=== PATIENT | female | born 1940 | race Caucasian/White ===

== ENCOUNTER 2023-10-21 12:08 | Emergency (ER) | payer MEDICARE, MEDICAID, SELFPAY ==
[2023-10-21 12:16] VITALS: BP 128/62
[2023-10-21 13:41] LABS: Urine Albumin 2+ (Neg - Trace); Urine Bilirubin Negative (Negative); Urine Character Very Cloudy (Clear); Urine Color Yellow; Urine Glucose Negative (Negative); Urine Ketone Negative (Negative); Urine Leukocyte 2+ (Negative); Urine Nitrite Negative (Negative); Urine Occult Blood 4+ (Negative); Urine Urobilinogen Negative (Neg - 1+)
[2023-10-21 14:00] VITALS: BP 128/74
--- NOTE | 2023-10-21 14:08 | ED.GENMED ---
Addendum entered and electronically signed by Cristian Connors PA-C 10/23/23 07:07:
Urine culture shows greater than 100,000 colony-forming units of E. coli. Sensitivities pending. Given fosfomycin
Original Note:
History of Present Illness
General
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
Time Seen by Provider: 10/21/23 13:54
Travel History
Have you had any contact with someone who has COVID-19?: No
Do you have any symptoms of coronavirus? Fever > 100 degrees, chills, cough, shortness of breath, sore throat, loss of taste or smell, muscle aches, or headache?: No
History of Present Illness
History of Present Illness:
HPI: The patient presents with pain near the suprapubic catheter site. She has had a suprapubic catheter for years and had the suprapubic catheter tube changed 2 weeks ago. She is somewhat of a limited historian has history of some cognitive
impairment and lives in a alf.
EXAM:
GENERAL: Well appearing in no distress
HEENT: Moist oral mucosa
CARDIOVASCULAR: No murmurs, normal heart rate, regular rhythm, No chest wall tenderness
PULMONARY: No respiratory distress, breath sounds are clear and equal
ABDOMEN: Soft with no peritoneal signs, minimal tenderness at the SP tube site, the tube is draining urine freely
NEUROLOGIC: Excellent strength all extremities, no coordination deficits, mild cognitive impairment
PSYCHIATRIC: Appropriate mental status, reasonable insight and judgement
EXTREMITIES: Nontender, no edema, moves all extremities equally
SKIN: No rash, no lesions
TIME OF INITIAL ENCOUNTER: 2 PM
NUMBER AND COMPLEXITY OF PROBLEMS ADDRESSED AT THE ENCOUNTER
� Chronic conditions affecting care: Developmental delay, high blood pressure, frequent UTI
� Acute Exacerbation and/or Progression of Chronic Illness: This is an acute on chronic problem
� Differential Diagnosis includes: UTI, kidney stone, pyelonephritis
AMOUNT AND/OR COMPLEXITY OF DATA TO BE REVIEWED AND ANALYZED
� I performed an independent evaluation of and my interpretation is:
EKG:
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
X-rays:
Laboratory Studies: Urinalysis obtained from the tube not from the bag shows very cloudy yellow urine with 4+ blood and 2+ leukocyte esterase
Other:
� Review of other/old records: I reviewed records, she has had Proteus and E. coli infections in the past
� Clinical information was obtained by an independent historian: I spoke to the staff from her alf at bedside
� Prescriptions/Medications Considered but not given:
� Further testing considered but not performed:
RISK OF COMPLICATIONS AND/OR MORBIDITY OR MORTALITY OF PATIENT MANAGEMENT
� Social determinants of health affecting care: Lives at a alf
� Discussion with other providers: Discussed with pharmacist as I had originally ordered Bactrim. However the patient is on an ARB and it is recommended to not use Bactrim on ARB. Bactrim was initially chosen based on prior
sensitivities when she grew E. coli and Proteus. Giving dose of fosfomycin.
� Escalation of care including admission/observation vs risk of discharge considered: As she does have associated pain, CT imaging obtained. Dr. Bowser also recommends an IV dose of antibiotic as well. Based on prior studies,
will give a dose of meropenem. I also sent a for 1 additional dose of fosfomycin to be given at her facility. The patient's vital signs are not consistent with sepsis. She is very comfortable in appearance.
Past History
Past History
ED Past Medical History: HTN, Hypercholesterolemia and Other (Special needs patient)
ED Past Surgical History: Gynecological (Total Hysterectomy) and Orthopedic (Bilateral knee replacements)
Social History
Tobacco: Non-smoker
Alcohol: None
Drug: None
Personal: Single
Living: with family
Phy Exam
Physical Exam
Physical Exam:
See HPI
Course
Orders/Labs/Results
Orders:
Orders
10/21/23 13:23
Urinalysis Reflex To Culture Urgent
Date Specimen was Collected: 10/21/23
Time Specimen was Collected: 13:21
Urine Microscopic Reflex Cult Urgent
Urine Culture Urgent
MARCY Source: U
Specimen Description:
Date Specimen was Collected: 10/21/23
Time Specimen was Collected: 13:21
10/21/23 14:08
CT Abd/pel Without Iv Or Oral Urgent
Comment:
Reason For Exam: abd pain, ?back pain, hematuria, chronic SP tube
10/21/23 14:11
Sulfamethox./Trimethoprim Ds [Bactrim Ds 800 mg/160 mg] 1 tablet PO NOW STA
10/21/23 14:31
Fosfomycin [Monurol] 3 gm PO ONCE ONE
10/21/23 16:03
Meropenem [Merrem] 1,000 mg IV NOW STA
10/21/23 16:36
Basic Metabolic Panel Urgent
Complete Blood Count/With Diff Urgent
10/21/23 18:16
Potassium Chloride 10% Elixir [KCl Elixir] 40 meq PO NOW STA
Abnormal Lab Results
10/21/23 10/21/23
13:23 16:36
RBC 3.95 L 10^6/uL
(4.20-5.40)
Hgb 11.6 L g/dL
(12.0-16.0)
Hct 33.5 L %
(37.0-47.0)
Abs Immat Gran (auto) 0.1 H 10^3/uL
(0-0.05)
Absolute Neuts (auto) 6.6 H 10^3/uL
(1.4-6.5)
Absolute Monos (auto) 0.7 H 10^3/uL
(0.1-0.6)
Immature Gran % 0.7 H %
(0-0.5)
Lymphocytes % 15.2 L %
(20.5-51.1)
Potassium 3.4 L mmol/L
(3.5-5.1)
BUN 32 H mg/dl
(7-17)
Ur Occult Blood Reflex 4+ A
(Negative)
Leukocyte Esterase Rfl 2+ A
(Negative)
Urine RBC 26-30 A /HPF
(0-2)
Urine WBC (Reflex) >100 A /HPF
(0-5)
Urine Bacteria (Reflex) Few A
(Negative)
Urine Albumin (Reflex) 2+ A
(Neg - Trace)
10/21/23 16:36
10/21/23 16:36
Vital Signs
Initial and Last Documented VS:
Initial Vital Signs
Temp Pulse Resp BP Pulse Ox
98.4 F 72 18 128/62 97
10/21/23 12:16 10/21/23 12:16 10/21/23 12:16 10/21/23 12:16 10/21/23 12:16
Last Documented Vital Signs
Temp Pulse Resp BP Pulse Ox
98.4 F 67 15 126/84 96
10/21/23 12:16 10/21/23 14:00 10/21/23 14:00 10/21/23 18:00 10/21/23 18:15
*Critical Care Note
Total Time (30-74mins, 75-104mins- exclusive of procedures): Not Applicable
ED Attending Note
-
Portions of this chart may have been created with voice recognition software.� Occasional wrong word or��sound alike� substitutions may have occurred due to the inherent limitations of voice recognition software.
Discharge Plan
Departure
Patient Disposition: Home (Routine Discharge)
Date of Disposition: 10/21/23
Time of Disposition: 16:07
Patient with high blood pressure during this ER visit?: Yes
Discharge Problem:
UTI (urinary tract infection)
Instructions: Urinary Tract Infection, Adult (DC)
Prescriptions:
New
fosfomycin tromethamine 3 gram packet
3 g PO ONCE Qty: 1 0RF
No Action
sertraline 100 MG tablet
200 mg PO HS
simvastatin 40 MG tablet
40 mg PO QPM
amlodipine 10 MG tablet
10 mg PO DAILY
potassium chloride 10 MEQ tablet,ER particles/crystals
10 meq PO BID
ibandronate [Boniva] 150 MG tablet
150 mg PO MONTHLY
Rx Instructions:
18 of the
omeprazole 40 MG capsule,delayed release(DR/EC)
40 mg PO DAILY
calcium carbonate [Oyster Shell Calcium 500] 500 MG tablet
500 mg PO DAILY
ferrous sulfate 325 mg (65 mg iron) Tablet
325 mg PO DAILY
losartan 25 mg Tablet
25 mg PO DAILY
triamterene-hydrochlorothiazid 75-50 mg Tablet
1 tab PO DAILY
Myrbetriq 50 mg Tablet Extended Release 24 Hr
50 mg PO DAILY
cranberry 200 MG
200 mg PO DAILY
cefdinir 300 mg capsule
300 mg PO BID 5 Days Qty: 10 0RF
Referrals:
Connie Thurston DO [Family Provider] -
Activity Restrictions/Additional Instructions:
We gave a dose of fosfomycin which is a pill. I spoke to the pharmacy here who recommends an additional dose of fosfomycin to be given in 2 to 3 days. I have sent a prescription for 1 additional dose of fosfomycin to be given this Wednesday. I sent
the prescription to [facility] pharmacy
Interventions
Interventions:
*Risk Screen - Suicide Last Done: 10/21/23 12:16
*General Assessment Last Done: 10/21/23 12:16
*Neglect/Abuse Screening Last Done: 10/21/23 12:16
ED- Fall Risk Assessment Last Done: 10/21/23 13:19
*ED COVID-19 Vaccine History Last Done: 10/21/23 18:50
*Nursing Disposition Last Done: 10/21/23 18:50
ED-Female Genitourinary Assessment Last Done: 10/21/23 13:18
Discharge Date and Time
Discharge Date/Time: 10/21/23 18:52
Print Language: THAI
[2023-10-21] MEDS: BACTRIM DS 800 MG/160 MG 1 TABLET PO (14:16)
[2023-10-21 14:19] VITALS: BP 128/58
[2023-10-21 14:41] LABS: Urine Squamous Cell 0-2 /LPF (Few)
[2023-10-21 14:42] LABS: Urine Red Blood Cell 26-30 /HPF (0-2); Urine White Cell >100 /HPF (0-5)
[2023-10-21 14:43] LABS: Urine Amorphous Seen; Urine Bacteria Few (Negative)
[2023-10-21] MEDS: MONUROL 3 GM PO (14:46)
[2023-10-21 16:32] VITALS: BP 114/63
[2023-10-21 16:43] LABS: % Basophils 0.1 % (0-2); % Eosinophils 1.2 % (0-6); % Immature Granulocytes 0.7 % (0-0.5); % Lymphocytes 15.2 % (20.5-51.1); % Monocytes 7.9 % (1.7-9.3); % Neutrophils 74.9 % (42.2-75.2); Absolute Eosinophils 0.1 10^3/uL (0-0.7); Absolute Immature Granulocytes 0.1 10^3/uL (0-0.05); Absolute Lymphocytes 1.3 10^3/uL (1.2-3.4); Absolute Monocytes 0.7 10^3/uL (0.1-0.6); Absolute Neutrophils 6.6 10^3/uL (1.4-6.5); Hematocrit 33.5 % (37.0-47.0); Hemoglobin 11.6 g/dL (12.0-16.0); Mean Corp Hgb Conc. 34.6 g/dL (33.0-37.0); Mean Corpuscular Hgb 29.4 pg (27.0-31.0); Mean Corpuscular Volume 84.8 fL (81.0-99.0); Mean Platelet Volume 8.9 fL (7.4-10.4); Nucleated Red Blood Cells % 0 %; Platelet Count 238 10^3/uL (130-400); Red Blood Cell Count 3.95 10^6/uL (4.20-5.40); Red Cell Dist. Width 13.2 % (11.5-14.5); White Blood Cell Count 8.8 10^3/uL (4.8-10.8)
[2023-10-21] MEDS: MERREM 1000 MG IV (16:58)
[2023-10-21 17:00] VITALS: BP 133/60
[2023-10-21 17:35] LABS: Blood Urea Nitrogen 32 mg/dl (7-17); Calcium 9.5 mg/dl (8.4-10.2); Carbon Dioxide 28 mmol/L (22-30); Chloride 101 mmol/L (98-107); Glucose 99 mg/dl (70-99); Potassium 3.4 mmol/L (3.5-5.1); Sodium 138 mmol/L (135-145); eGFR > 60.00
[2023-10-21 18:00] VITALS: BP 126/84
[2023-10-21] MEDS: KCL ELIXIR 40 MEQ PO (18:26)
== END 2023-10-21 18:52 | disposition home or self-care (01) ==
LOC: EMR 12:08
PROVIDERS: EMERGENCY PHYSICIAN Emergency Medicine; FAMILY PHYSICIAN Family Medicine
DX: N39.0 Urinary tract infection, site not specified (principal); R10.9 Unspecified abdominal pain; I10 Essential (primary) hypertension; E78.00 Pure hypercholesterolemia, unspecified; Z90.710 Acquired absence of both cervix and uterus; Z96.653 Presence of artificial knee joint, bilateral
CPT/HCPCS: 99284; 96374; 74176; 80048; 81003; 81015; 85025; 87086; 87088; 87186; J2185

== ENCOUNTER → 2023-11-30 11:12 | Outpatient (REF) | payer MEDICARE, MEDICAID, SELFPAY | LOC: RAD 11:12 | PROVIDERS: ATTENDING PHYSICIAN Urology; FAMILY PHYSICIAN Family Medicine | DX: N39.0 Urinary tract infection, site not specified (principal); N20.0 Calculus of kidney | CPT/HCPCS: 74176 ==

== ENCOUNTER 2024-01-07 12:04 | Inpatient (IN) | payer MEDICARE, MEDICAID, SELFPAY ==
[2024-01-05] VITALS (9 sets, daily range): BP systolic 60–153; BP diastolic 45–87; BMI 24.9
[2024-01-05 09:40] LABS: % Eosinophils 0.8 % (0-6); % Immature Granulocytes 0.3 % (0-0.5); % Lymphocytes 14.9 % (20.5-51.1); % Monocytes 8.4 % (1.7-9.3); % Neutrophils 75.6 % (42.2-75.2); Absolute Eosinophils 0.1 10^3/uL (0-0.7); Absolute Lymphocytes 1.1 10^3/uL (1.2-3.4); Absolute Monocytes 0.6 10^3/uL (0.1-0.6); Absolute Neutrophils 5.3 10^3/uL (1.4-6.5); Hematocrit 36.5 % (37.0-47.0); Hemoglobin 12.8 g/dL (12.0-16.0); Mean Corp Hgb Conc. 35.1 g/dL (33.0-37.0); Mean Corpuscular Hgb 29.4 pg (27.0-31.0); Mean Corpuscular Volume 83.9 fL (81.0-99.0); Mean Platelet Volume 9.5 fL (7.4-10.4); Nucleated Red Blood Cells % 0 %; Platelet Count 210 10^3/uL (130-400); Red Blood Cell Count 4.35 10^6/uL (4.20-5.40); Red Cell Dist. Width 14.1 % (11.5-14.5); White Blood Cell Count 7.1 10^3/uL (4.8-10.8)
[2024-01-05 09:53] LABS: PT 13.2 Sec (11.4-14.6)
[2024-01-05] MEDS: ROCEPHIN 2000 MG IV (10:45)
[2024-01-05] MEDS: STERILE WATER FOR INJECTION 20 ML IV (10:45)
--- NOTE | 2024-01-05 12:29 | PTCARENOTE ---
Returned to [facility] recovery area after procedure unable to be completed. Pt to be admitted for surgery tomorrow with Dr. Heath. Admissions aware of need for bed. Pt. resting comfortably, bandaids dry and intact
--- NOTE | 2024-01-05 15:43 | PTCARENOTE ---
Patient received from IR in stretcher, patient ambulated to bed; Suprapubic catheter draining elliot urine; L flank puncture site clean, dry, and intact; Aide from patient's living facility at bedside; Call clay within reach; Bed in lowest
position, wheels locked; Patient and aide oriented to room and unit; Patient denies pain; Assessment ongoing
[2024-01-05] MEDS: LIPITOR 20 MG PO (17:56)
[2024-01-05] MEDS: LOVENOX 40 MG SC (17:56)
[2024-01-05] MEDS: ZOLOFT 200 MG PO (21:10)
[2024-01-06] VITALS (15 sets, daily range): BP systolic 113–144; BP diastolic 46–107
[2024-01-06] MEDS: NORMOSOL-R 1000 IV (00:25)
[2024-01-06] MEDS: DYAZIDE PO (07:22)
[2024-01-06] MEDS: FEOSOL PO (07:22)
[2024-01-06] MEDS: COZAAR PO (07:22)
[2024-01-06] MEDS: NORVASC PO (07:23)
[2024-01-06] MEDS: PROTONIX PO (07:23)
[2024-01-06] MEDS: MYRBETRIQ EXTENDED RELEASE PO (07:35)
[2024-01-06] MEDS: STERILE WATER FOR INJECTION 10 ML IV (09:15)
[2024-01-06] MEDS: ROCEPHIN 1000 MG IV (09:16)
[2024-01-06 10:04] LABS: Hematocrit 33.9 % (37.0-47.0); Hemoglobin 12.1 g/dL (12.0-16.0); Mean Corp Hgb Conc. 35.7 g/dL (33.0-37.0); Mean Corpuscular Hgb 29.7 pg (27.0-31.0); Mean Corpuscular Volume 83.3 fL (81.0-99.0); Mean Platelet Volume 9.7 fL (7.4-10.4); Platelet Count 177 10^3/uL (130-400); Red Blood Cell Count 4.07 10^6/uL (4.20-5.40); Red Cell Dist. Width 13.9 % (11.5-14.5); White Blood Cell Count 6.7 10^3/uL (4.8-10.8)
[2024-01-06 10:27] LABS: Blood Urea Nitrogen 20 mg/dl (7-17); Calcium 9.1 mg/dl (8.4-10.2); Carbon Dioxide 30 mmol/L (22-30); Chloride 100 mmol/L (98-107); Estimated Creatinine Clearance 58 ml/min; Glucose 98 mg/dl (70-99); Potassium 3.1 mmol/L (3.5-5.1); Sodium 135 mmol/L (135-145); eGFR > 60.00
--- NOTE | 2024-01-06 11:37 | CM ---
Reviewed the chart notes and spoke with the patient at the bedside. NILESH spoke with her nurse Dulce ([phone], ext [phone]) at [facility]. Per Dulce, the patient resides with three other residents in a one story home with a ramp to
enter. The patient has a rolling walker and rollator. The patient has been to [facility] in the past and has had [facility]. The patient attends an adult day program Wednesday through Wednesday. The confirmed pharmacy is [facility]. NILESH
continues to be available to patient/family and is monitoring medical plan for needs at discharge.
Plan: Discharge back to [facility]. Staff will provide transportation. Call Dulce with updates.
--- NOTE | 2024-01-06 13:30 | PTCARENOTE ---
Patient to OR in bed with volunteers, family member (Colette - cousin) went with patient to preop holding
--- NOTE | 2024-01-06 16:49 | PTCARENOTE ---
REport from emeterio Mace drowsy, oriented x 3 by RN, positioned self on L side laura well, denies c/o, s/p cath intact with red draiange to bsd, warm blankets given laura well
--- NOTE | 2024-01-06 17:04 | SUR.PHASEI ---
Alert, sleeping intermit, dentures given laura well, denies c/o states 'your hands are cold ' reassured
--- NOTE | 2024-01-06 17:16 | W.PN.URO.CBU ---
Today's Communication / Plan
-
Discharge tomorrow
Repeat ULS 2 weeks
Assessment / Plan
-
83F with suprapubix tube due to intractable urinary incontinence
History of kidney stones, recurrent proteus UTI and catheter obstruction
Now with large L renal pelvis stone
s/p unsuccessful percutaneous access attempt 01/04
s/p OR 01/06/24 for L ureteroscopy, laser lithotripsy, stone extraction, ureteral stent, SPT exchange
Plan for discharge to [facility] in AM
Follow up 2 weeks for repeat ureteroscopy to clear residual stone burden
IV abx while inpatient for prophylaxis
Diagnosis
-
Date of Service: January 06, 2024
-
Patient Diagnosis:
L renal stone
Chronic incontinence
Recurrent UTI
Subjective
-
post op
Objective
-
Vital Signs
Temp Pulse Resp BP Pulse Ox
98.4 F 60 14 137/63 97
01/06/24 16:20 01/06/24 17:00 01/06/24 17:00 01/06/24 17:00 01/06/24 17:00
Intake and Output
01/05/24 01/06/24 01/07/24
06:59 06:59 06:59
Intake Total 1930 / 1930 310 / 310
Output Total 1050 / 1050 235 / 235
Balance 880 / 880 75 / 75
Intake:
Oral fluids 960 / 960
IV fluids (Total) 950 / 950 300 / 300
nss 150 / 150
IV piggybacks 20 20 10
Output:
Urine, Cox 150 / 150
Suprapubic output 900 / 900 235 / 235
Other:
How many times incontinent 1
SMALL amount urine
Laboratory Results
01/06/24 09:49
01/06/24 09:49
Physical Exam
-
General - well developed, well nourished, no acute distress
Chest - clear
Abdomen - soft, non-tender
SPT in place, clear urine
--- NOTE | 2024-01-06 17:17 | SUR.PHASEI ---
Dozing on L side, no c/o, Nakita CORONA relieved
--- NOTE | 2024-01-06 18:06 | PTCARENOTE ---
Patient received from PACU in bed; Patient on 2L nasal cannula; Suprapubic tube in place draining bloody urine; Patient denies pain at this time; Patient denies N/V; Bed alarm armed; Call clay within reach; Bed in lowest position, wheels locked;
Assessment and care ongoing
[2024-01-06] MEDS: LIPITOR 20 MG PO (18:10)
[2024-01-06] MEDS: LOVENOX 40 MG SC (18:10)
[2024-01-06] MEDS: ZOLOFT 200 MG PO (21:41)
[2024-01-06] MEDS: TYLENOL 650 MG PO (23:48)
[2024-01-07 03:31] VITALS: BP 108/47
[2024-01-07 06:56] VITALS: BP 122/58
[2024-01-07 07:45] LABS: Hematocrit 36.8 % (37.0-47.0); Hemoglobin 12.9 g/dL (12.0-16.0)
[2024-01-07] MEDS: MYRBETRIQ EXTENDED RELEASE 25 MG PO (08:07)
[2024-01-07] MEDS: TYLENOL 650 MG PO (08:07)
[2024-01-07] MEDS: NORVASC 10 MG PO (08:07)
[2024-01-07] MEDS: DYAZIDE 2 CAPSULE PO (08:08)
[2024-01-07] MEDS: FEOSOL 325 MG PO (08:08)
[2024-01-07] MEDS: PROTONIX 40 MG PO (08:09)
[2024-01-07] MEDS: COZAAR 25 MG PO (08:09)
[2024-01-07] MEDS: ROCEPHIN 1000 MG IV (08:09)
[2024-01-07] MEDS: STERILE WATER FOR INJECTION 10 ML IV (08:10)
--- NOTE | 2024-01-07 08:10 | W.PN.URO.CBU ---
Today's Communication / Plan
-
Antibiotics
Cultures
Trend fever
Assessment / Plan
-
83F with suprapubix tube due to intractable urinary incontinence
History of kidney stones, recurrent proteus UTI and catheter obstruction
Now with large L renal pelvis stone
s/p unsuccessful percutaneous access attempt 01/04
s/p OR 01/06/24 for L ureteroscopy, laser lithotripsy, stone extraction, ureteral stent, SPT exchange
- Post op fever starting AM 01/06 - infection vs SIRS response to vigorous flushing of stone fragments
- Switch to Zosyn
- Urine and blood cultures sent
Plan to follow up 2 weeks for repeat ureteroscopy to clear any residual stone burden and remove inactive Interstim
Diagnosis
-
Date of Service: January 07, 2024
-
Patient Diagnosis:
L renal stone
Chronic incontinence
Recurrent UTI
Fever
Subjective
-
Fever this AM, otherwise stable
No pain or complaints
Objective
-
Vital Signs
Temp Pulse Resp BP Pulse Ox
102.5 F H 72 15 108/47 96
01/07/24 06:56 01/07/24 06:56 01/07/24 06:56 01/07/24 03:31 01/07/24 06:56
Intake and Output
01/06/24 01/07/24 01/08/24
06:59 06:59 06:59
Intake Total 1930 / 1930 310 / 310 480 / 480
Output Total 1050 / 1050 380 / 380 650 / 650
Balance 880 / 880 -70 / -70 -170 / -170
Intake:
Oral fluids 960 / 960 480 / 480
IV fluids (Total) 950 / 950 300 / 300
nss 150 / 150
IV piggybacks 20 / 20 10 10
Output:
Urine, Cox 150 / 150
Suprapubic output 900 / 900 380 / 380 650 / 650
Other:
How many times incontinent 1
SMALL amount urine
Physical Exam
-
General - well developed, well nourished, no acute distress
Chest - clear
Abdomen - soft, non-tender
SPT in place hematuria minimal
Skin - warm & dry with no rash
[2024-01-07] MEDS: TORADOL 15 MG IV (08:28)
[2024-01-07 09:14] LABS: % Basophils 0.1 % (0-2); % Eosinophils 0.1 % (0-6); % Immature Granulocytes 0.5 % (0-0.5); % Lymphocytes 1.3 % (20.5-51.1); % Monocytes 4.4 % (1.7-9.3); % Neutrophils 93.6 % (42.2-75.2); Absolute Immature Granulocytes 0.1 10^3/uL (0-0.05); Absolute Lymphocytes 0.1 10^3/uL (1.2-3.4); Absolute Monocytes 0.4 10^3/uL (0.1-0.6); Absolute Neutrophils 9.3 10^3/uL (1.4-6.5); Hematocrit 33.5 % (37.0-47.0); Hemoglobin 11.6 g/dL (12.0-16.0); Mean Corp Hgb Conc. 34.6 g/dL (33.0-37.0); Mean Corpuscular Hgb 29.1 pg (27.0-31.0); Mean Platelet Volume 10.1 fL (7.4-10.4); Nucleated Red Blood Cells % 0 %; Platelet Count 139 10^3/uL (130-400); Red Blood Cell Count 3.99 10^6/uL (4.20-5.40); Red Cell Dist. Width 13.9 % (11.5-14.5); White Blood Cell Count 9.9 10^3/uL (4.8-10.8)
[2024-01-07 09:33] LABS: Blood Urea Nitrogen 22 mg/dl (7-17); Calcium 8.7 mg/dl (8.4-10.2); Carbon Dioxide 29 mmol/L (22-30); Chloride 100 mmol/L (98-107); Estimated Creatinine Clearance 58 ml/min; Glucose 122 mg/dl (70-99); Sodium 134 mmol/L (135-145); eGFR > 60.00
[2024-01-07] MEDS: ZOSYN 50 IV ×2 (10:45→17:34)
[2024-01-07 10:51] VITALS: BP 115/43
--- NOTE | 2024-01-07 12:50 | CM ---
Patient seen at bedside.
Switched from outpatient to inpatient. IMM explained to patient & signed. Copy given to patient. Placed in chart.
Await cx, trending fevers
PT eval - no skilled needs.
PLAN: Discharge when stable back to [facility].
Call nurse Dulce with updates ([phone] ext [phone]) at [facility].
[facility] will transport patient home when ready.
[2024-01-07 15:05] VITALS: BP 95/45
[2024-01-07] MEDS: LIPITOR 20 MG PO ×2 (17:33→17:34)
[2024-01-07] MEDS: KLOR-CON 20 MEQ PO ×2 (17:33→21:05)
[2024-01-07] MEDS: LOVENOX 40 MG SC (17:34)
[2024-01-07] MEDS: ZOLOFT 200 MG PO (21:05)
[2024-01-07 23:14] VITALS: BP 130/74
[2024-01-08] MEDS: ZOSYN 50 IV ×3 (02:02→16:42)
[2024-01-08 07:00] VITALS: BP 115/52
[2024-01-08 07:51] LABS: Blood Urea Nitrogen 18 mg/dl (7-17); Calcium 8.6 mg/dl (8.4-10.2); Carbon Dioxide 31 mmol/L (22-30); Chloride 99 mmol/L (98-107); Estimated Creatinine Clearance 51 ml/min; Glucose 105 mg/dl (70-99); Potassium 3.2 mmol/L (3.5-5.1); Sodium 132 mmol/L (135-145); eGFR > 60.00
[2024-01-08 08:31] LABS: Hematocrit 31.1 % (37.0-47.0); Hemoglobin 10.8 g/dL (12.0-16.0); Mean Corp Hgb Conc. 34.7 g/dL (33.0-37.0); Mean Corpuscular Volume 83.4 fL (81.0-99.0); Platelet Count 129 10^3/uL (130-400); Red Blood Cell Count 3.73 10^6/uL (4.20-5.40); Red Cell Dist. Width 14.1 % (11.5-14.5); White Blood Cell Count 7.3 10^3/uL (4.8-10.8)
--- NOTE | 2024-01-08 09:55 | W.PN.URO.CBU ---
Today's Communication / Plan
-
ecourage oog]b ossible d/c sun
Assessment / Plan
-
83F with suprapubix tube due to intractable urinary incontinence
History of kidney stones, recurrent proteus UTI and catheter obstruction
Now with large L renal pelvis stone
s/p unsuccessful percutaneous access attempt 01/04
s/p OR 01/06/24 for L ureteroscopy, laser lithotripsy, stone extraction, ureteral stent, SPT exchange
- Post op fever starting AM 8 - infection vs SIRS response to vigorous flushing of stone fragments
- Switch to Zosyn
- Urine and blood cultures sent cxs neg willcntinue iv abs ad switch to rals also increase pulm toitlet cxr revewdd mild atelestasis
Plan to follow up 2 weeks for repeat ureteroscopy to clear any residual stone burden and remove inactive Interstim
Diagnosis
-
Date of Service: January 08, 2024
-
Patient Diagnosis:
Post Op Day:
Patient Diagnosis:
L renal stone
Chronic incontinence
Recurrent UTI
Fever
Subjective
-
mid fevr this am no ajor comlplaints
Objective
-
Vital Signs
Temp Pulse Resp BP Pulse Ox
100.2 F 66 18 115/52 94
01/08/24 07:00 01/08/24 07:00 01/08/24 07:00 01/08/24 07:00 01/08/24 07:00
Intake and Output
01/07/24 01/08/24 01/09/24
06:59 06:59 06:59
Intake Total 310 / 310 1130 / 1130
Output Total 380 / 380 1850 / 1850
Balance -70 / -70 -720 / -720
Intake:
Oral fluids 930 / 930
IV fluids (Total) 300 / 300 50 / 50
IV piggybacks 10 150 / 150
Output:
Suprapubic output 380 / 380 1850 / 1850
Laboratory Results
01/08/24 06:45
01/08/24 06:45
Review of Systems
-
: Difficulty Voiding
Physical Exam
-
General - well developed, well nourished, no acute distress
Chest - clear bilaterally
Abdomen - soft, non-tender, positive bowel sounds, no CVAT, no incisional pain or distention
Genitalia - normal
Rectal - normal
Skin - warm & dry with no rash
Neuro - AOx3, no motor deficits
Extremities - no clubbing, no cyanosis, no edema
Incision - clean, dry
Dressing - clean, dry, intact
Care Review
Data Reviewed
Discussed with: Nursing
[2024-01-08] MEDS: PROTONIX 40 MG PO (10:13)
[2024-01-08] MEDS: NORVASC 10 MG PO (10:13)
[2024-01-08] MEDS: KLOR-CON 20 MEQ PO ×2 (10:13→20:12)
[2024-01-08] MEDS: DYAZIDE 2 CAPSULE PO (10:14)
[2024-01-08] MEDS: FEOSOL 325 MG PO (10:14)
[2024-01-08] MEDS: MYRBETRIQ EXTENDED RELEASE 25 MG PO (10:15)
[2024-01-08] MEDS: COZAAR 25 MG PO (10:15)
[2024-01-08] MEDS: TYLENOL 650 MG PO (10:16)
[2024-01-08 10:41] LABS: % Basophils 0.1 % (0-2); % Eosinophils 0.7 % (0-6); % Immature Granulocytes 0.6 % (0-0.5); % Lymphocytes 10.3 % (20.5-51.1); % Monocytes 11.3 % (1.7-9.3); Absolute Eosinophils 0.1 10^3/uL (0-0.7); Absolute Lymphocytes 0.8 10^3/uL (1.2-3.4); Absolute Monocytes 0.8 10^3/uL (0.1-0.6); Absolute Neutrophils 5.6 10^3/uL (1.4-6.5); Nucleated Red Blood Cells % 0 %
[2024-01-08 15:00] VITALS: BP 102/41
[2024-01-08] MEDS: LOVENOX 40 MG SC (16:44)
[2024-01-08] MEDS: ZOLOFT 200 MG PO (21:18)
[2024-01-08] MEDS: COLACE 100 MG PO (21:18)
[2024-01-08 23:22] VITALS: BP 117/44
[2024-01-09] MEDS: ZOSYN 50 IV ×2 (01:33→10:17)
[2024-01-09 06:43] LABS: % Eosinophils 1.8 % (0-6); % Immature Granulocytes 0.4 % (0-0.5); % Lymphocytes 12.1 % (20.5-51.1); % Monocytes 10.6 % (1.7-9.3); % Neutrophils 75.1 % (42.2-75.2); Absolute Eosinophils 0.1 10^3/uL (0-0.7); Absolute Lymphocytes 0.9 10^3/uL (1.2-3.4); Absolute Monocytes 0.8 10^3/uL (0.1-0.6); Absolute Neutrophils 5.6 10^3/uL (1.4-6.5); Hematocrit 31.4 % (37.0-47.0); Mean Corpuscular Hgb 29.1 pg (27.0-31.0); Mean Corpuscular Volume 83.1 fL (81.0-99.0); Mean Platelet Volume 9.7 fL (7.4-10.4); Nucleated Red Blood Cells % 0 %; Platelet Count 151 10^3/uL (130-400); Red Blood Cell Count 3.78 10^6/uL (4.20-5.40); Red Cell Dist. Width 14.1 % (11.5-14.5); White Blood Cell Count 7.4 10^3/uL (4.8-10.8)
[2024-01-09 07:00] VITALS: BP 113/48
[2024-01-09 07:06] LABS: Blood Urea Nitrogen 20 mg/dl (7-17); Calcium 8.9 mg/dl (8.4-10.2); Carbon Dioxide 30 mmol/L (22-30); Chloride 99 mmol/L (98-107); Estimated Creatinine Clearance 51 ml/min; Glucose 108 mg/dl (70-99); Sodium 134 mmol/L (135-145); eGFR > 60.00
--- NOTE | 2024-01-09 09:11 | W.DCSUMMARY ---
Discharge Summary
Discharge Data
Date of Admission: 01/05/24
Date of Discharge: 01/09/24
Total time spent discharging patient (in min): 35
-
Pending Results: No
Hospital Course
The pt has a staghorn calculus ATtempts on the day of admission were made but failed to achieve a percutaneous nephrostomy tube. Instead of PUL a staged ureteroscopic laser of the stone was perfrmed. Th pt had post op fever but blood and
urine cxs wre negativ A CXR showed atelctasis and thef ever waned with chest pt Stable and ready for discharge will do second stage in neav future
Discharge Plan
-
Patient Disposition: Home (Routine Discharge)
Discharge Diagnosis/Procedures: Left kidney stone
Left ureteroscopy, laser lithotripsy, ureteral stent placement
Exchange of suprapubic tube
Condition: Good
Diet: No restrictions
Activity: No restrictions and No strenuous activity
Driving Restrictions: As prior to admission
Bathing Restrictions: None
Activity Restrictions/Additional Instructions:
Nancy was unable to have the procedure initially planned since the radiologists could not access the kidney through her flank
Instead she had an endoscopic procedure to break up the majority of the stone and an internal stent was placed
She will need a repeat of this procedure in about 2 weeks to clear out the remainder of the stone fragments, as well as for removal of the Interstim device
Our office will call to schedule this procedure
After surgery Nancy had fever and was observed on a course of antibiotics
She will continue an oral antibiotic course for about 1 week
Referrals:
Griffin An MD [Active] - (call Dr shah to [facility]]due next phase treatment)
Connie Thurston DO [Family Provider] -
Additional Discharge Medication Instructions: [id number] 1 pill daily for month
Prescriptions:
Continued
sertraline 100 MG tablet
200 mg PO HS
simvastatin 40 MG tablet
40 mg PO QPM
amlodipine 10 MG tablet
10 mg PO DAILY
potassium chloride 10 MEQ tablet,ER particles/crystals
10 meq PO BID
omeprazole 40 MG capsule,delayed release(DR/EC)
40 mg PO DAILY
ferrous sulfate 325 mg (65 mg iron) Tablet
325 mg PO DAILY
losartan 25 mg Tablet
25 mg PO DAILY
triamterene-hydrochlorothiazid 75-50 mg Tablet
1 tab PO DAILY
cranberry 200 MG
200 mg PO DAILY
mirabegron [Myrbetriq] 25 mg Tablet Extended Release 24 Hr
25 mg PO DAILY
Discharge Date and Time
Print Language: ICELANDIC
--- NOTE | 2024-01-09 09:41 | CM ---
Addendum entered by Ava Knox RN 01/09/24 10:20:
IMM signed and placed on chart.
Original Note:
Reviewed the chart notes and spoke with the patient's nurse Natali ([phone]). Patient will need to receive a dose of macrodantin later today and she will need a paper script for the medication from urology. Natali additionally needs clinic
discharge paperwork to be faxed to ([phone]). They will be able to transport the patient later today back to her [place] [facility]. RN and attending notified of the above.
Plan: [place]charge back to [place] [facility].
Call report to: [phone] (Natali)
Fax report to: [phone]
[2024-01-09] MEDS: KLOR-CON 20 MEQ PO (10:14)
[2024-01-09] MEDS: DYAZIDE 2 CAPSULE PO (10:14)
[2024-01-09] MEDS: COZAAR 25 MG PO (10:15)
[2024-01-09] MEDS: NORVASC 10 MG PO (10:15)
[2024-01-09] MEDS: MYRBETRIQ EXTENDED RELEASE 25 MG PO (10:15)
[2024-01-09] MEDS: FEOSOL 325 MG PO (10:16)
[2024-01-09] MEDS: PROTONIX 40 MG PO (10:16)
[2024-01-09 13:27] VITALS: BP 108/48
== END 2024-01-09 16:54 | disposition home or self-care (01) | DRG 854 ==
LOC: EICU 12:04
PROVIDERS: Nurse Practitioner Gerontology; Radiology Diagnostic Radiology; ADMITTING PHYSICIAN Urology; FAMILY PHYSICIAN Family Medicine
PROC: BT121ZZ Fluoroscopy of Left Kidney using Low Osmolar Contrast (ICD-10-PCS; 2024-01-05)
PROC: 0T778DZ Dilation of Left Ureter with Intraluminal Device, Via Natural or Artificial Opening Endoscopic (ICD-10-PCS; 2024-01-06)
PROC: 0T2BX0Z Change Drainage Device in Bladder, External Approach (ICD-10-PCS; 2024-01-06)
PROC: 0TC18ZZ Extirpation of Matter from Left Kidney, Via Natural or Artificial Opening Endoscopic (ICD-10-PCS; 2024-01-06)
DX: R50.82 Postprocedural fever (principal); D68.8 Other specified coagulation defects; N13.2 Hydronephrosis with renal and ureteral calculous obstruction; J98.11 Atelectasis; N39.498 Other specified urinary incontinence; Z87.440 Personal history of urinary (tract) infections; Z87.442 Personal history of urinary calculi
CPT/HCPCS: 36415; 50695; 71046; 74018; 76000; 80048; 85014; 85018; 85025; 85027; 85610; 87040; 87070; 87086; 99152; 99153; C1769; C1894; C2617

== ENCOUNTER 2024-01-20 06:23 | Day surgery (SDC) | payer MEDICARE, MEDICAID, SELFPAY ==
[2024-01-14 09:50] VITALS: BMI 24.7
--- NOTE | 2024-01-14 12:38 | PTCARENOTE ---
Received medical clearance and EKG from PCP- EKG report states demand pacemaker. No history of pacemaker noted on clearance or in our medical record. Cardiology stated no pacemaker as of 2019 when last seen, was only required to see cardio as
needed. Spoke to Ruby at [facility] and they confirmed pt does not have a pacemaker.
--- NOTE | 2024-01-14 15:33 | PTCARENOTE ---
EKG reviewed by Dr. England, he would like a cook box filler to comment on the EKG read (states demand pacemaker and pt has no history of pacemaker noted). Edelmira in Dr. Heath's office made aware.
[2024-01-20] VITALS (8 sets, daily range): BP systolic 128–140; BP diastolic 62–71; BMI 24.7
[2024-01-20] MEDS: NORMOSOL-R 1000 IV (10:47)
== END 2024-01-20 16:34 | disposition home or self-care (01) ==
LOC: SDS 06:23
PROVIDERS: ATTENDING PHYSICIAN Urology
DX: N20.0 Calculus of kidney (principal); N32.81 Overactive bladder; N39.41 Urge incontinence
CPT/HCPCS: 52356; 64585; 64595; 76000; A4300; C1758; C1769; C1894

== ENCOUNTER → 2024-02-16 14:04 | Outpatient (REF) | payer MEDICARE, MEDICAID, SELFPAY | LOC: RAD 14:04 | PROVIDERS: ATTENDING PHYSICIAN Urology; FAMILY PHYSICIAN Family Medicine | DX: T83.9XXA Unspecified complication of genitourinary prosthetic device, implant and graft, initial encounter (principal); N20.0 Calculus of kidney | CPT/HCPCS: 74018 ==

== ENCOUNTER → 2024-05-09 09:46 | Outpatient (REF) | payer MEDICARE, MEDICAID, SELFPAY | LOC: HWRAD 09:46 | PROVIDERS: ATTENDING PHYSICIAN Urology; FAMILY PHYSICIAN Family Medicine | DX: N39.0 Urinary tract infection, site not specified (principal); N20.0 Calculus of kidney | CPT/HCPCS: 74176 ==

== ENCOUNTER → 2025-05-15 11:20 | Outpatient (REF) | payer MEDICARE, MEDICAID, SELFPAY | LOC: RAD 11:20 | PROVIDERS: ATTENDING PHYSICIAN Urology; FAMILY PHYSICIAN Family Medicine | DX: N20.0 Calculus of kidney (principal) | CPT/HCPCS: 76775 ==